=== PATIENT | male | born 1945 | race Caucasian/White ===

== ENCOUNTER 2023-02-09 23:10 | Inpatient (IN) ==
[2023-02-10] MEDS ORDERED: Dextrose 50% Syringe 50 ml 25 GM/50 ML SYRINGE IV PUSH PRN (00:54)
[2023-02-10] MEDS ORDERED: Vancomycin per Pharmacy 1 EA NOTE FOLLOW UP SCH (01:00)
[2023-02-10] MEDS: Cefepime 2 GM IV - ED ONCE IV ONE ×2 (01:04→01:45)
[2023-02-10 01:48] LABS: Hematocrit 42.5 % (38-53); Hemoglobin 14.2 g/dL (13.2-16.3); Mean Corpuscular Hemoglobin 30.4 pg (27-33); Mean Corpuscular Hgb Conc 33.4 g/dL (31-36); Mean Corpuscular Volume 91.1 fL (80-97); Mean Platelet Volume 9.1 fL (7.5-11.2); Platelet Count 176 10^3/uL (150-450); Red Blood Count 4.67 10^6/uL (4.06-5.63); Red Cell Distribution Width 14.9 % (12-17)
[2023-02-10 02:05] LABS: C Reactive Protein 341.69 mg/L (<8.01); Calcium 8.1 mg/dL (8.6-10.3); Creatinine, Serum 2.84 mg/dL (0.67-1.17); Potassium 4.2 mmol/L (3.5-5.0); eGFR CKD-EPI 22.4 (>60)
[2023-02-10 03:01] LABS: ABS Basophils 0.1 10^3/uL (0.0-0.1); ABS Eosinophils 0.2 10^3/uL (0.0-0.5); ABS Lymphocytes 1.4 10^3/uL (1.0-4.8); ABS Neutrophils 24.3 10^3/uL (1.5-7.6); ABS Nucleated RBC 0.01 10^3/ul; Eosinophil % 0.8 %
[2023-02-10] MEDS: Heparin 5000 UNITS/ML 1 mL VIAL SUBCUT SCH ×3 (05:33→21:05)
[2023-02-10] MEDS: Nystatin TOP POWDER 15 GM BTL TOPICAL SCH ×4 (05:34→22:37)
[2023-02-10] MEDS ORDERED: Vancomycin Random Level NOTE FOLLOW UP ONE (06:00)
[2023-02-10] MEDS: NS 0.9% 1000 ml BAG 1,000 ML IV SCH ×2 (06:42→20:58)
[2023-02-10] MEDS: Mometasone/Formoter 200/5 MDI INH SCH (08:03)
[2023-02-10] MEDS: Vancomycin 1,250 MG in NS 0.9% 250 ml 250 ML IVPB ONE ×2 (09:23→11:39)
[2023-02-10] MEDS ORDERED: Cefepime 2 GM in Dextrose 2 GM/50 ML BAG IV SCH (13:00)
[2023-02-10] MEDS: Cefepime 1 GM in Dextrose 1 GM/50 ML BAG IV SCH (13:26)
[2023-02-11] MEDS: Cefepime 1 GM in Dextrose 1 GM/50 ML BAG IV SCH ×2 (01:49→14:15)
[2023-02-11] MEDS: Heparin 5000 UNITS/ML 1 mL VIAL SUBCUT SCH ×3 (05:32→22:25)
[2023-02-11] MEDS ORDERED: Vancomycin Random Level NOTE FOLLOW UP ONE (06:00)
[2023-02-11] MEDS: Mometasone/Formoter 200/5 MDI INH SCH (07:22)
[2023-02-11 07:57] LABS: Hemoglobin 13.9 g/dL (13.2-16.3); Mean Corpuscular Hemoglobin 30.3 pg (27-33); Mean Corpuscular Hgb Conc 33.2 g/dL (31-36); Mean Corpuscular Volume 91.1 fL (80-97); Mean Platelet Volume 8.7 fL (7.5-11.2); Platelet Count 198 10^3/uL (150-450); Red Blood Count 4.61 10^6/uL (4.06-5.63); Red Cell Distribution Width 15.2 % (12-17); White Blood Count 25.7 10^3/uL (3.6-10.2)
[2023-02-11 07:58] LABS: ABS Basophils 0.1 10^3/uL (0.0-0.1); ABS Eosinophils 0.2 10^3/uL (0.0-0.5); ABS Lymphocytes 1.4 10^3/uL (1.0-4.8); ABS Monocytes 1.4 10^3/uL (0.0-1.1); ABS Neutrophils 22.6 10^3/uL (1.5-7.6); ABS Nucleated RBC 0.02 10^3/ul; Eosinophil % 0.8 %; Lymphocyte % 5.5 %; Nucleated Red Blood Cells % 0.1 %/100WBC (0.0-0.8)
[2023-02-11 08:06] LABS: C Reactive Protein 293.45 mg/L (<8.01); Creatinine, Serum 2.7 mg/dL (0.67-1.17); Potassium 4.1 mmol/L (3.5-5.0); eGFR CKD-EPI 23.8 (>60)
[2023-02-11] MEDS ORDERED: Lactated Ringers 1000 ml BAG 1,000 ML IV ONE (08:07)
[2023-02-11 08:30] LABS: Vancomycin Random 11.2 mcg/mL
[2023-02-11] MEDS: Nystatin TOP POWDER 15 GM BTL TOPICAL SCH ×3 (08:54→22:25)
[2023-02-11] MEDS ORDERED: Influenza vaccine *QUAD* *2023-24* 0.5 ML SYRINGE IM ONE (09:00)
[2023-02-11] MEDS ORDERED: Vancomycin 1000 MG in NS 0.9% 250 ML IVPB ONE (13:00)
[2023-02-11] MEDS: NS 0.9% 1000 ml BAG 1,000 ML IV SCH (19:05)
[2023-02-12] MEDS: Cefepime 1 GM in Dextrose 1 GM/50 ML BAG IV SCH (01:47)
[2023-02-12] MEDS ORDERED: Acetaminophen IV 1 GM/100ML 1,000 MG/100 ML BAG IV ONE (04:13)
[2023-02-12] MEDS: NS 0.9% 1000 ml BAG 1,000 ML IV SCH (05:14)
[2023-02-12] MEDS: Heparin 5000 UNITS/ML 1 mL VIAL SUBCUT SCH ×3 (05:16→21:21)
[2023-02-12] MEDS ORDERED: Vancomycin Random Level NOTE FOLLOW UP ONE (06:00)
[2023-02-12 06:40] LABS: Hematocrit 40.1 % (38-53); Hemoglobin 13.4 g/dL (13.2-16.3); Mean Corpuscular Hemoglobin 30.4 pg (27-33); Mean Corpuscular Hgb Conc 33.4 g/dL (31-36); Mean Corpuscular Volume 91.1 fL (80-97); Mean Platelet Volume 8.6 fL (7.5-11.2); Platelet Count 194 10^3/uL (150-450); Red Cell Distribution Width 15.3 % (12-17); White Blood Count 18.7 10^3/uL (3.6-10.2)
[2023-02-12 07:05] LABS: ABS Basophils 0.1 10^3/uL (0.0-0.1); ABS Eosinophils 0.3 10^3/uL (0.0-0.5); ABS Lymphocytes 1.6 10^3/uL (1.0-4.8); ABS Monocytes 1.7 10^3/uL (0.0-1.1); ABS Neutrophils 15.1 10^3/uL (1.5-7.6); ABS Nucleated RBC 0.02 10^3/ul; Eosinophil % 1.4 %; Lymphocyte % 8.6 %; Nucleated Red Blood Cells % 0.1 %/100WBC (0.0-0.8)
[2023-02-12 07:16] LABS: Calcium 7.7 mg/dL (8.6-10.3); Creatinine, Serum 2.46 mg/dL (0.67-1.17); Potassium 4.2 mmol/L (3.5-5.0); eGFR CKD-EPI 26.6 (>60)
[2023-02-12] MEDS: Mometasone/Formoter 200/5 MDI INH SCH (08:19)
[2023-02-12] MEDS: Nystatin TOP POWDER 15 GM BTL TOPICAL SCH ×3 (08:59→23:04)
[2023-02-12] MEDS ORDERED: Vancomycin 750 MG in NS 0.9% 250 ML IVPB ONE (12:00)
[2023-02-12] MEDS ORDERED: cefTRIAXone ADVAN VIAL 1 GM in NS 0.9% 50 ML 50 ML IVPB SCH (14:00)
[2023-02-12] MEDS ORDERED: Insulin GLARGINE 100 un/ml 10 ml VIAL SUBCUT SCH (21:00)
[2023-02-13] MEDS: NS 0.9% 1000 ml BAG 1,000 ML IV SCH ×2 (01:40→12:14)
[2023-02-13] MEDS: Heparin 5000 UNITS/ML 1 mL VIAL SUBCUT SCH (05:56)
[2023-02-13] MEDS ORDERED: Vancomycin Random Level NOTE FOLLOW UP ONE (06:00)
[2023-02-13 06:28] LABS: Creatinine, Serum 2.26 mg/dL (0.67-1.17); Vancomycin Trough 14.5 mcg/mL; eGFR CKD-EPI 29.5 (>60)
[2023-02-13] MEDS: Mometasone/Formoter 200/5 MDI INH SCH (07:53)
[2023-02-13 08:30] LABS: Hematocrit 38.1 % (38-53); Hemoglobin 12.8 g/dL (13.2-16.3); Mean Corpuscular Hemoglobin 30.5 pg (27-33); Mean Corpuscular Hgb Conc 33.6 g/dL (31-36); Mean Corpuscular Volume 90.8 fL (80-97); Mean Platelet Volume 8.8 fL (7.5-11.2); Platelet Count 243 10^3/uL (150-450); Red Cell Distribution Width 14.9 % (12-17); White Blood Count 18.1 10^3/uL (3.6-10.2)
[2023-02-13 09:30] LABS: ABS Basophils 0.1 10^3/uL (0.0-0.1); ABS Eosinophils 0.3 10^3/uL (0.0-0.5); ABS Lymphocytes 1.5 10^3/uL (1.0-4.8); ABS Monocytes 1.4 10^3/uL (0.0-1.1); ABS Neutrophils 14.8 10^3/uL (1.5-7.6); Eosinophil % 1.8 %; Lymphocyte % 8.1 %
[2023-02-13] MEDS: Nystatin TOP POWDER 15 GM BTL TOPICAL SCH (09:47)
[2023-02-13 14:14] VITALS: BP 138/71
[2023-02-14] MEDS ORDERED: Vancomycin 750 MG in NS 0.9% 250 ML IVPB SCH (06:00)
[2023-02-15] MEDS ORDERED: Vancomycin Trough Check NOTE FOLLOW UP ONE (05:30)
== END 2023-02-13 16:22 | disposition home or self-care (01) | DRG 603 ==
LOC: ED 23:10 → EDHOLD 02-10 00:52 → MED 02-10 02:11
PROVIDERS: ADMIT Hospitalist; ATTEND Student in an Organized Health Care Education/Training Program

== ENCOUNTER 2023-02-26 00:09 | Inpatient (IN) ==
[2023-02-26] MEDS ORDERED: Al Hydrox/Mg Hydrox/Simet LIQ 30 ML UDC PO PRN (00:16)
[2023-02-26] MEDS ORDERED: Polyethylene Glycol 3350 17 GM PACKET PO PRN (00:16)
[2023-02-26] MEDS ORDERED: Ondansetron 4 mg VIAL 2 MG/ML 2 ml VIAL IV PRN (00:16)
[2023-02-26] MEDS ORDERED: Senna TAB 8.6 mg TAB PO PRN (00:16)
[2023-02-26] MEDS ORDERED: Dextrose 50% Syringe 50 ml 25 GM/50 ML SYRINGE IV PUSH PRN (00:44)
[2023-02-26 01:34] LABS: Calcium 7.6 mg/dL (8.6-10.3); Potassium 5.3 mmol/L (3.5-5.0)
[2023-02-26 02:12] LABS: Creatinine, Serum 2.28 mg/dL (0.67-1.17); eGFR CKD-EPI 29.2 (>60)
[2023-02-26] MEDS: Heparin 5000 UNITS/ML 1 mL VIAL SUBCUT SCH ×4 (02:22→21:29)
[2023-02-26 02:33] LABS: ABS Basophils 0.1 10^3/uL (0.0-0.1); ABS Eosinophils 0.5 10^3/uL (0.0-0.5); ABS Neutrophils 6.7 10^3/uL (1.5-7.6); ABS Nucleated RBC 0.01 10^3/ul; Eosinophil % 5.5 %; Hemoglobin 11.9 g/dL (13.2-16.3); Lymphocyte % 10.8 %; Mean Corpuscular Hemoglobin 30.5 pg (27-33); Mean Corpuscular Hgb Conc 33.1 g/dL (31-36); Mean Corpuscular Volume 92.3 fL (80-97); Mean Platelet Volume 7.6 fL (7.5-11.2); Nucleated Red Blood Cells % 0.1 %/100WBC (0.0-0.8); Platelet Count 424 10^3/uL (150-450); Red Blood Count 3.91 10^6/uL (4.06-5.63); Red Cell Distribution Width 15.2 % (12-17); White Blood Count 9.3 10^3/uL (3.6-10.2)
[2023-02-26 02:36] LABS: Activated Partial Thrombo Time 33.8 seconds (26.0-38.0); INR 1.24 (0.83-1.13)
[2023-02-26] MEDS: Mometasone/Formoter 200/5 MDI INH SCH (07:34)
[2023-02-26 09:37] LABS: C Reactive Protein 77.43 mg/L (<8.01)
[2023-02-26] MEDS: SODIUM ZIRCONIUM CYCLOSILICATE 10 GM PACKET PO SCH ×3 (10:09→21:28)
[2023-02-26] MEDS: cefTRIAXone 2 gm/50 mL D5W 2 GM/50 ML BAG IV SCH (10:12)
[2023-02-26] MEDS: Insulin GLARGINE 100 un/ml 10 ml VIAL SUBCUT SCH (15:58)
[2023-02-26 22:12] LABS: Rapid COVID-19 Molecular Undetected (Undetected)
[2023-02-26 22:18] LABS: Influenza A Molecular Negative (Negative); Influenza B Molecular Negative (Negative)
[2023-02-27] MEDS: Heparin 5000 UNITS/ML 1 mL VIAL SUBCUT SCH ×3 (05:59→20:34)
[2023-02-27 06:47] LABS: ABS Basophils 0.1 10^3/uL (0.0-0.1); ABS Eosinophils 0.6 10^3/uL (0.0-0.5); ABS Lymphocytes 0.8 10^3/uL (1.0-4.8); ABS Monocytes 1.1 10^3/uL (0.0-1.1); ABS Neutrophils 5.1 10^3/uL (1.5-7.6); Eosinophil % 7.3 %; Hematocrit 35.3 % (38-53); Hemoglobin 11.8 g/dL (13.2-16.3); Lymphocyte % 10.8 %; Mean Corpuscular Hemoglobin 30.7 pg (27-33); Mean Corpuscular Hgb Conc 33.4 g/dL (31-36); Mean Corpuscular Volume 91.8 fL (80-97); Mean Platelet Volume 7.8 fL (7.5-11.2); Platelet Count 393 10^3/uL (150-450); Red Blood Count 3.84 10^6/uL (4.06-5.63); White Blood Count 7.6 10^3/uL (3.6-10.2)
[2023-02-27 07:21] LABS: Calcium 7.5 mg/dL (8.6-10.3); Creatinine, Serum 2.1 mg/dL (0.67-1.17); Magnesium 2.2 mg/dL (1.9-2.7); Potassium 4.8 mmol/L (3.5-5.0); eGFR CKD-EPI 32.2 (>60)
[2023-02-27] MEDS: cefTRIAXone 2 gm/50 mL D5W 2 GM/50 ML BAG IV SCH (07:47)
[2023-02-27] MEDS ORDERED: Heparin 2 UNITS/ML IVPREMIX 3,000 UNIT/1,500 ML BAG IV ONE (07:50)
[2023-02-27] MEDS ORDERED: Lidocaine 1% VIAL 10 MG/ML 30 ML VIAL ONE (07:50)
[2023-02-27] MEDS ORDERED: Iodixanol 320 (CONTRAST) 100 ML SDV ONE (07:50)
[2023-02-27] MEDS ORDERED: Midazolam 5 mg/5 ml VIAL 1 mg/ml 5 ml VIAL (5 mg) ONE (08:06)
[2023-02-27] MEDS ORDERED: fentaNYL 100 mcg/2 ml 50 MCG/ML VIAL ONE (08:06)
[2023-02-27] MEDS: Mometasone/Formoter 200/5 MDI INH SCH (08:15)
[2023-02-27] MEDS ORDERED: Heparin 1,000 UNIT/ML 10 ml (10,000 UNITS) CATHLAB/DIALYSIS ONE (08:16)
[2023-02-27] MEDS: Insulin GLARGINE 100 un/ml 10 ml VIAL SUBCUT SCH (09:41)
[2023-02-27] MEDS: SODIUM ZIRCONIUM CYCLOSILICATE 10 GM PACKET PO SCH (11:28)
[2023-02-27] MEDS ORDERED: Polyethylene Glycol 3350 17 GM PACKET PO PRN (13:07)
[2023-02-28] MEDS: SODIUM ZIRCONIUM CYCLOSILICATE 10 GM PACKET PO SCH ×2 (00:35→09:22)
[2023-02-28] MEDS: Heparin 5000 UNITS/ML 1 mL VIAL SUBCUT SCH ×3 (06:16→21:24)
[2023-02-28] MEDS: Mometasone/Formoter 200/5 MDI INH SCH ×2 (06:58→07:07)
[2023-02-28 07:15] LABS: ABS Basophils 0.1 10^3/uL (0.0-0.1); ABS Eosinophils 0.8 10^3/uL (0.0-0.5); ABS Monocytes 1.2 10^3/uL (0.0-1.1); ABS Neutrophils 5.5 10^3/uL (1.5-7.6); ABS Nucleated RBC 0.01 10^3/ul; Eosinophil % 8.8 %; Hematocrit 33.1 % (38-53); Hemoglobin 11.2 g/dL (13.2-16.3); Lymphocyte % 11.8 %; Mean Corpuscular Hgb Conc 33.7 g/dL (31-36); Mean Platelet Volume 7.8 fL (7.5-11.2); Nucleated Red Blood Cells % 0.1 %/100WBC (0.0-0.8); Platelet Count 368 10^3/uL (150-450); Red Cell Distribution Width 15.2 % (12-17); White Blood Count 8.6 10^3/uL (3.6-10.2)
[2023-02-28 07:30] LABS: Calcium 7.2 mg/dL (8.6-10.3); Creatinine, Serum 2.32 mg/dL (0.67-1.17); Potassium 4.2 mmol/L (3.5-5.0); eGFR CKD-EPI 28.6 (>60)
[2023-02-28] MEDS: Insulin GLARGINE 100 un/ml 10 ml VIAL SUBCUT SCH (09:16)
[2023-02-28] MEDS: cefTRIAXone 1 gm/50 mL D5W 1 GM/50 ML BAG IV SCH (09:17)
[2023-03-01] MEDS: Heparin 5000 UNITS/ML 1 mL VIAL SUBCUT SCH ×3 (05:23→21:26)
[2023-03-01] MEDS: Mometasone/Formoter 200/5 MDI INH SCH (07:41)
[2023-03-01] MEDS: Insulin GLARGINE 100 un/ml 10 ml VIAL SUBCUT SCH (08:38)
[2023-03-01] MEDS: cefTRIAXone 1 gm/50 mL D5W 1 GM/50 ML BAG IV SCH (09:45)
[2023-03-02] MEDS: Heparin 5000 UNITS/ML 1 mL VIAL SUBCUT SCH ×3 (06:26→21:14)
[2023-03-02 09:00] LABS: ABS Basophils 0.1 10^3/uL (0.0-0.1); ABS Eosinophils 0.8 10^3/uL (0.0-0.5); ABS Lymphocytes 1.3 10^3/uL (1.0-4.8); ABS Monocytes 0.9 10^3/uL (0.0-1.1); ABS Neutrophils 5.6 10^3/uL (1.5-7.6); ABS Nucleated RBC 0.02 10^3/ul; Eosinophil % 8.7 %; Hematocrit 36.4 % (38-53); Hemoglobin 12.3 g/dL (13.2-16.3); Lymphocyte % 15.4 %; Mean Corpuscular Hemoglobin 30.9 pg (27-33); Mean Corpuscular Hgb Conc 33.8 g/dL (31-36); Mean Corpuscular Volume 91.3 fL (80-97); Mean Platelet Volume 7.7 fL (7.5-11.2); Nucleated Red Blood Cells % 0.2 %/100WBC (0.0-0.8); Platelet Count 364 10^3/uL (150-450); Red Blood Count 3.99 10^6/uL (4.06-5.63); Red Cell Distribution Width 15.5 % (12-17); White Blood Count 8.7 10^3/uL (3.6-10.2)
[2023-03-02] MEDS: Mometasone/Formoter 200/5 MDI INH SCH (09:24)
[2023-03-02 09:28] LABS: Calcium 7.7 mg/dL (8.6-10.3); Creatinine, Serum 2.09 mg/dL (0.67-1.17); Potassium 4.7 mmol/L (3.5-5.0); eGFR CKD-EPI 32.4 (>60)
[2023-03-02] MEDS: cefTRIAXone 1 gm/50 mL D5W 1 GM/50 ML BAG IV SCH (09:45)
[2023-03-02] MEDS: Insulin GLARGINE 100 un/ml 10 ml VIAL SUBCUT SCH (09:46)
[2023-03-03] MEDS: Heparin 5000 UNITS/ML 1 mL VIAL SUBCUT SCH (05:36)
[2023-03-03 05:59] LABS: ABS Basophils 0.1 10^3/uL (0.0-0.1); ABS Eosinophils 0.9 10^3/uL (0.0-0.5); ABS Lymphocytes 1.6 10^3/uL (1.0-4.8); ABS Monocytes 1.1 10^3/uL (0.0-1.1); ABS Neutrophils 7.4 10^3/uL (1.5-7.6); Eosinophil % 7.8 %; Hematocrit 34.3 % (38-53); Hemoglobin 11.4 g/dL (13.2-16.3); Lymphocyte % 14.3 %; Mean Corpuscular Hemoglobin 30.3 pg (27-33); Mean Corpuscular Hgb Conc 33.2 g/dL (31-36); Mean Corpuscular Volume 91.5 fL (80-97); Mean Platelet Volume 7.6 fL (7.5-11.2); Platelet Count 375 10^3/uL (150-450); Red Blood Count 3.75 10^6/uL (4.06-5.63); Red Cell Distribution Width 14.9 % (12-17); White Blood Count 11.1 10^3/uL (3.6-10.2)
[2023-03-03 06:19] LABS: Calcium 7.5 mg/dL (8.6-10.3); Creatinine, Serum 2.11 mg/dL (0.67-1.17); Potassium 4.9 mmol/L (3.5-5.0)
[2023-03-03] MEDS: Mometasone/Formoter 200/5 MDI INH SCH (07:27)
[2023-03-03] MEDS: cefTRIAXone 1 gm/50 mL D5W 1 GM/50 ML BAG IV SCH (08:23)
[2023-03-03] MEDS: Insulin GLARGINE 100 un/ml 10 ml VIAL SUBCUT SCH (08:24)
[2023-03-03 12:52] LABS: C Reactive Protein 59.73 mg/L (<8.01)
[2023-03-03] MEDS ORDERED: ceFAZolin 2 GM PREMIX 2 GM/50 ML BAG ONE (13:34)
[2023-03-03] MEDS ORDERED: fentaNYL 100 mcg/2 ml 50 MCG/ML VIAL ONE (13:40)
[2023-03-03] MEDS ORDERED: Midazolam 2 mg/2 ml VIAL 1 mg/ml 2 ml VIAL (2 mg) ONE ×2 (13:40→14:37)
[2023-03-03] MEDS ORDERED: Propofol 10 MG/ML 20 ML BTL ONE (13:41)
[2023-03-03] MEDS ORDERED: Lidocaine 2% PF 5 ML VIAL ONE (13:44)
[2023-03-03] MEDS ORDERED: Glycopyrrolate IV 0.2 MG/ML 1 ML VIAL ONE (14:16)
[2023-03-03] MEDS ORDERED: ceFAZolin VIAL VIAL ONE (14:25)
[2023-03-03] MEDS: Lactated Ringers 1000 ml BAG 1,000 ML IV SCH (16:59)
[2023-03-04] MEDS: Lactated Ringers 1000 ml BAG 1,000 ML IV SCH ×2 (03:34→14:21)
[2023-03-04] MEDS: Mometasone/Formoter 200/5 MDI INH SCH (08:04)
[2023-03-04] MEDS: Insulin GLARGINE 100 un/ml 10 ml VIAL SUBCUT SCH (08:11)
[2023-03-04] MEDS: cefTRIAXone 1 gm/50 mL D5W 1 GM/50 ML BAG IV SCH (08:14)
[2023-03-04 08:28] LABS: Hematocrit 36.2 % (38-53); Hemoglobin 12.2 g/dL (13.2-16.3); Mean Corpuscular Hemoglobin 30.8 pg (27-33); Mean Corpuscular Hgb Conc 33.6 g/dL (31-36); Mean Corpuscular Volume 91.7 fL (80-97); Mean Platelet Volume 7.5 fL (7.5-11.2); Platelet Count 351 10^3/uL (150-450); Red Blood Count 3.95 10^6/uL (4.06-5.63); Red Cell Distribution Width 15.1 % (12-17)
[2023-03-04 08:48] LABS: Calcium 7.9 mg/dL (8.6-10.3); Creatinine, Serum 2.06 mg/dL (0.67-1.17); Potassium 4.9 mmol/L (3.5-5.0)
[2023-03-04] MEDS ORDERED: SODIUM ZIRCONIUM CYCLOSILICATE 10 GM PACKET PO ONE (09:34)
[2023-03-04] MEDS: Heparin 5000 UNITS/ML 1 mL VIAL SUBCUT SCH ×2 (14:16→22:13)
[2023-03-04] MEDS: Ammonium Lactate 12% 1 APPLIC TUBE TOPICAL SCH ×2 (14:16→22:13)
[2023-03-05] MEDS: Lactated Ringers 1000 ml BAG 1,000 ML IV SCH ×2 (00:52→11:18)
[2023-03-05] MEDS: Heparin 5000 UNITS/ML 1 mL VIAL SUBCUT SCH ×3 (05:24→22:13)
[2023-03-05 06:28] LABS: Hematocrit 34.4 % (38-53); Hemoglobin 11.6 g/dL (13.2-16.3); Mean Corpuscular Hemoglobin 30.6 pg (27-33); Mean Corpuscular Hgb Conc 33.7 g/dL (31-36); Mean Corpuscular Volume 90.9 fL (80-97); Mean Platelet Volume 7.5 fL (7.5-11.2); Platelet Count 343 10^3/uL (150-450); Red Blood Count 3.79 10^6/uL (4.06-5.63); Red Cell Distribution Width 14.9 % (12-17); White Blood Count 10.5 10^3/uL (3.6-10.2)
[2023-03-05 06:47] LABS: Calcium 7.7 mg/dL (8.6-10.3); Creatinine, Serum 2.02 mg/dL (0.67-1.17); eGFR CKD-EPI 33.8 (>60)
[2023-03-05] MEDS: Mometasone/Formoter 200/5 MDI INH SCH (08:14)
[2023-03-05] MEDS: Insulin GLARGINE 100 un/ml 10 ml VIAL SUBCUT SCH (09:46)
[2023-03-05] MEDS: Ammonium Lactate 12% 1 APPLIC TUBE TOPICAL SCH ×2 (09:54→22:13)
[2023-03-06] MEDS: Lactated Ringers 1000 ml BAG 1,000 ML IV SCH (00:44)
[2023-03-06] MEDS: Heparin 5000 UNITS/ML 1 mL VIAL SUBCUT SCH ×3 (06:14→22:25)
[2023-03-06 06:19] LABS: Calcium 7.6 mg/dL (8.6-10.3); Creatinine, Serum 1.9 mg/dL (0.67-1.17); Potassium 5.2 mmol/L (3.5-5.0); eGFR CKD-EPI 36.3 (>60)
[2023-03-06] MEDS: Mometasone/Formoter 200/5 MDI INH SCH (08:03)
[2023-03-06] MEDS: Insulin GLARGINE 100 un/ml 10 ml VIAL SUBCUT SCH (08:43)
[2023-03-06] MEDS: Ammonium Lactate 12% 1 APPLIC TUBE TOPICAL SCH ×2 (08:44→22:26)
[2023-03-06] MEDS ORDERED: Linezolid 600 MG IVPREMIX(*) 600 MG/300 ML BAG IVPB SCH (15:00)
[2023-03-07] MEDS: Heparin 5000 UNITS/ML 1 mL VIAL SUBCUT SCH (06:24)
[2023-03-07] MEDS: Mometasone/Formoter 200/5 MDI INH SCH (06:58)
[2023-03-07 09:15] LABS: Calcium 7.8 mg/dL (8.6-10.3); Creatinine, Serum 1.88 mg/dL (0.67-1.17); Potassium 5.1 mmol/L (3.5-5.0); eGFR CKD-EPI 36.8 (>60)
[2023-03-07 10:01] VITALS: BP 140/65
[2023-03-07] MEDS: Insulin GLARGINE 100 un/ml 10 ml VIAL SUBCUT SCH (10:26)
[2023-03-07] MEDS: Ammonium Lactate 12% 1 APPLIC TUBE TOPICAL SCH (12:12)
[2023-03-07 12:39] LABS: Rapid COVID-19 Molecular Undetected (Undetected)
== END 2023-03-07 14:05 | DRG 256 ==
LOC: MEDTELE 00:09 → SUATTDRO 00:16 → MEDTELE 02-27 13:49
PROVIDERS: ADMIT Internal Medicine; ATTEND Student in an Organized Health Care Education/Training Program

== ENCOUNTER 2023-04-02 10:54 | Inpatient (IN) ==
[2023-04-02] MEDS ORDERED: Polyethylene Glycol 3350 17 GM PACKET PO PRN (12:34)
[2023-04-02] MEDS ORDERED: Senna TAB 8.6 mg TAB PO PRN (12:34)
[2023-04-02] MEDS ORDERED: Zosyn per Pharmacy NOTE FOLLOW UP SCH (13:00)
[2023-04-02] MEDS: ZOSYN 3.375 GM x ONE DOSE over 30 miuntes IV ×2 (13:06→23:03)
[2023-04-02] MEDS ORDERED: Dextrose 50% Syringe 50 ml 25 GM/50 ML SYRINGE IV PUSH PRN (13:43)
[2023-04-02 14:20] LABS: ABS Basophils 0.1 10^3/uL (0.0-0.1); ABS Eosinophils 1.2 10^3/uL (0.0-0.5); ABS Neutrophils 8.3 10^3/uL (1.5-7.6); Eosinophil % 9.6 %; Hematocrit 32.9 % (38-53); Hemoglobin 10.8 g/dL (13.2-16.3); Lymphocyte % 15.7 %; Mean Corpuscular Hemoglobin 30.1 pg (27-33); Mean Corpuscular Hgb Conc 32.8 g/dL (31-36); Mean Corpuscular Volume 91.6 fL (80-97); Mean Platelet Volume 7.4 fL (7.5-11.2); Platelet Count 416 10^3/uL (150-450); Red Blood Count 3.59 10^6/uL (4.06-5.63); Red Cell Distribution Width 15.3 % (12-17); White Blood Count 12.6 10^3/uL (3.6-10.2)
[2023-04-02 14:28] LABS: Activated Partial Thrombo Time 34.6 seconds (26.0-38.0); INR 1.18 (0.83-1.13)
[2023-04-02 15:04] LABS: Albumin 2.8 g/dL (3.2-5.2); Albumin/Globulin Ratio 0.8 (1-3); C Reactive Protein 29.16 mg/L (<8.01); Calcium 8.3 mg/dL (8.6-10.3); Creatinine, Serum 1.88 mg/dL (0.67-1.17); Globulin 3.6 g/dL (2-4); Magnesium 2.1 mg/dL (1.9-2.7); Potassium 5.3 mmol/L (3.5-5.0); Total Bilirubin 0.6 mg/dL (0.2-1.0); Total Protein 6.4 g/dL (6.4-8.9); eGFR CKD-EPI 36.8 (>60)
[2023-04-02 15:41] LABS: Rapid COVID-19 Molecular Undetected (Undetected)
[2023-04-02] MEDS ORDERED: Buffered Lidocaine 1% SYRIN 1 ml ONE (15:59)
[2023-04-02] MEDS ORDERED: Lidocaine 2% PF 5 ML VIAL ONE (16:07)
[2023-04-02] MEDS ORDERED: Midazolam 2 mg/2 ml VIAL 1 mg/ml 2 ml VIAL (2 mg) ONE ×2 (16:08→17:19)
[2023-04-02] MEDS ORDERED: fentaNYL 100 mcg/2 ml 50 MCG/ML VIAL ONE (16:08)
[2023-04-02] MEDS ORDERED: Propofol 10 MG/ML 20 ML BTL ONE (16:11)
[2023-04-02] MEDS ORDERED: Piperacillin/Tazobac 3.375 BAG 3.375 GM/100 ML BAG IV ONE (16:40)
[2023-04-02] MEDS ORDERED: Glycopyrrolate IV 0.2 MG/ML 1 ML VIAL ONE ×3 (16:50→17:46)
[2023-04-02] MEDS ORDERED: Bupivacaine 0.5% 50 ML MDV VIAL ONE (17:34)
[2023-04-02] MEDS ORDERED: KETAMINE HCL 10 MG/ML 20 ml VIAL (200 MG) ONE (17:42)
[2023-04-02 17:53] LABS: Erythrocyte Sed Rate 68 mm/Hr (0-19)
[2023-04-02] MEDS ORDERED: Ondansetron 4 mg VIAL 2 MG/ML 2 ml VIAL ONE (18:21)
[2023-04-02] MEDS: NS 0.9% 1000 ml BAG 1,000 ML IV SCH (21:36)
[2023-04-02] MEDS: Nystatin TOP POWDER 15 GM BTL TOPICAL SCH (23:03)
[2023-04-02] MEDS: ZOSYN 3.375 GM Q8H per EXTENDED INFUSION IV SCH (23:20)
[2023-04-03] MEDS: ZOSYN 3.375 GM Q8H per EXTENDED INFUSION IV SCH (03:30)
[2023-04-03 05:23] LABS: ABS Basophils 0.1 10^3/uL (0.0-0.1); ABS Eosinophils 1.3 10^3/uL (0.0-0.5); ABS Lymphocytes 1.9 10^3/uL (1.0-4.8); ABS Neutrophils 7.2 10^3/uL (1.5-7.6); ABS Nucleated RBC 0.01 10^3/ul; Eosinophil % 11.1 %; Hematocrit 28.6 % (38-53); Hemoglobin 9.4 g/dL (13.2-16.3); Lymphocyte % 16.4 %; Mean Corpuscular Hemoglobin 30.3 pg (27-33); Mean Corpuscular Hgb Conc 32.9 g/dL (31-36); Mean Corpuscular Volume 92.2 fL (80-97); Mean Platelet Volume 7.3 fL (7.5-11.2); Platelet Count 376 10^3/uL (150-450); Red Cell Distribution Width 15.5 % (12-17); White Blood Count 11.5 10^3/uL (3.6-10.2)
[2023-04-03 06:00] LABS: Albumin 2.4 g/dL (3.2-5.2); Albumin/Globulin Ratio 0.8 (1-3); C Reactive Protein 31.56 mg/L (<8.01); Calcium 7.7 mg/dL (8.6-10.3); Creatinine, Serum 1.95 mg/dL (0.67-1.17); Globulin 3.2 g/dL (2-4); Potassium 5.4 mmol/L (3.5-5.0); Total Bilirubin 0.7 mg/dL (0.2-1.0); Total Protein 5.6 g/dL (6.4-8.9); eGFR CKD-EPI 35.2 (>60)
[2023-04-03] MEDS: Mometasone/Formoter 200/5 MDI INH SCH (09:57)
[2023-04-03] MEDS: Ammonium Lactate 12% 1 APPLIC TUBE TOPICAL SCH (10:30)
[2023-04-03] MEDS: Enoxaparin 40 MG/0.4 ML SYR SUBCUT SCH (11:04)
[2023-04-03] MEDS: Insulin GLARGINE 100 un/ml 10 ml VIAL SUBCUT SCH (11:04)
[2023-04-03] MEDS: CMCS: DAPAGLIFLOZIN 10 MG TAB (NF) PO SCH (11:05)
[2023-04-03] MEDS ORDERED: Al Hydrox/Mg Hydrox/Simet LIQ 30 ML UDC PO PRN (12:34)
[2023-04-03] MEDS: SODIUM ZIRCONIUM CYCLOSILICATE 10 GM PACKET PO SCH (12:49)
[2023-04-04 06:20] LABS: ABS Basophils 0.1 10^3/uL (0.0-0.1); ABS Eosinophils 1.2 10^3/uL (0.0-0.5); ABS Monocytes 1.1 10^3/uL (0.0-1.1); ABS Neutrophils 6.4 10^3/uL (1.5-7.6); ABS Nucleated RBC 0.02 10^3/ul; Eosinophil % 11.5 %; Hematocrit 28.1 % (38-53); Hemoglobin 9.4 g/dL (13.2-16.3); Lymphocyte % 18.7 %; Mean Corpuscular Hemoglobin 30.7 pg (27-33); Mean Corpuscular Hgb Conc 33.4 g/dL (31-36); Mean Platelet Volume 7.2 fL (7.5-11.2); Nucleated Red Blood Cells % 0.1 %/100WBC (0.0-0.8); Platelet Count 364 10^3/uL (150-450); Red Blood Count 3.05 10^6/uL (4.06-5.63); Red Cell Distribution Width 15.2 % (12-17); White Blood Count 10.8 10^3/uL (3.6-10.2)
[2023-04-04 06:34] LABS: Calcium 7.8 mg/dL (8.6-10.3); Creatinine, Serum 2.08 mg/dL (0.67-1.17); Potassium 5.1 mmol/L (3.5-5.0); eGFR CKD-EPI 32.6 (>60)
[2023-04-04] MEDS: SODIUM ZIRCONIUM CYCLOSILICATE 10 GM PACKET PO SCH (10:04)
[2023-04-05 07:01] LABS: ABS Basophils 0.1 10^3/uL (0.0-0.1); ABS Eosinophils 1.6 10^3/uL (0.0-0.5); ABS Lymphocytes 1.9 10^3/uL (1.0-4.8); ABS Monocytes 0.9 10^3/uL (0.0-1.1); ABS Neutrophils 5.3 10^3/uL (1.5-7.6); Eosinophil % 16.6 %; Hematocrit 27.9 % (38-53); Hemoglobin 9.4 g/dL (13.2-16.3); Lymphocyte % 19.7 %; Mean Corpuscular Hemoglobin 30.7 pg (27-33); Mean Corpuscular Hgb Conc 33.6 g/dL (31-36); Mean Corpuscular Volume 91.4 fL (80-97); Mean Platelet Volume 7.2 fL (7.5-11.2); Platelet Count 337 10^3/uL (150-450); Red Blood Count 3.06 10^6/uL (4.06-5.63); Red Cell Distribution Width 15.4 % (12-17); White Blood Count 9.8 10^3/uL (3.6-10.2)
[2023-04-05 07:09] LABS: Calcium 7.9 mg/dL (8.6-10.3); Creatinine, Serum 1.93 mg/dL (0.67-1.17); Potassium 4.7 mmol/L (3.5-5.0); eGFR CKD-EPI 35.7 (>60)
[2023-04-05] MEDS: Insulin GLARGINE 100 un/ml 10 ml VIAL SUBCUT SCH (08:51)
[2023-04-05] MEDS: SODIUM ZIRCONIUM CYCLOSILICATE 10 GM PACKET PO SCH (12:17)
[2023-04-06 06:24] LABS: Calcium 7.7 mg/dL (8.6-10.3); Creatinine, Serum 1.94 mg/dL (0.67-1.17); Potassium 4.8 mmol/L (3.5-5.0); eGFR CKD-EPI 35.4 (>60)
[2023-04-07 07:46] LABS: ABS Basophils 0.1 10^3/uL (0.0-0.1); ABS Eosinophils 1.4 10^3/uL (0.0-0.5); ABS Lymphocytes 2.1 10^3/uL (1.0-4.8); ABS Monocytes 0.9 10^3/uL (0.0-1.1); ABS Neutrophils 4.2 10^3/uL (1.5-7.6); Eosinophil % 16.2 %; Hematocrit 29.5 % (38-53); Hemoglobin 9.9 g/dL (13.2-16.3); Lymphocyte % 24.2 %; Mean Corpuscular Hemoglobin 30.8 pg (27-33); Mean Corpuscular Hgb Conc 33.7 g/dL (31-36); Mean Corpuscular Volume 91.3 fL (80-97); Mean Platelet Volume 6.5 fL (7.5-11.2); Platelet Count 327 10^3/uL (150-450); Red Blood Count 3.23 10^6/uL (4.06-5.63); Red Cell Distribution Width 15.8 % (12-17); White Blood Count 8.6 10^3/uL (3.6-10.2)
[2023-04-07 08:08] LABS: Calcium 7.9 mg/dL (8.6-10.3); Creatinine, Serum 1.92 mg/dL (0.67-1.17); Potassium 4.7 mmol/L (3.5-5.0); eGFR CKD-EPI 35.9 (>60)
[2023-04-08 06:14] LABS: ABS Basophils 0.1 10^3/uL (0.0-0.1); ABS Eosinophils 1.6 10^3/uL (0.0-0.5); ABS Lymphocytes 2.1 10^3/uL (1.0-4.8); ABS Monocytes 0.7 10^3/uL (0.0-1.1); ABS Neutrophils 3.7 10^3/uL (1.5-7.6); ABS Nucleated RBC 0.01 10^3/ul; Eosinophil % 20.1 %; Hematocrit 28.8 % (38-53); Hemoglobin 9.7 g/dL (13.2-16.3); Lymphocyte % 25.2 %; Mean Corpuscular Hemoglobin 30.7 pg (27-33); Mean Corpuscular Hgb Conc 33.7 g/dL (31-36); Mean Corpuscular Volume 91.2 fL (80-97); Nucleated Red Blood Cells % 0.1 %/100WBC (0.0-0.8); Platelet Count 323 10^3/uL (150-450); Red Blood Count 3.16 10^6/uL (4.06-5.63); Red Cell Distribution Width 15.9 % (12-17); White Blood Count 8.1 10^3/uL (3.6-10.2)
[2023-04-08 06:33] LABS: Calcium 7.8 mg/dL (8.6-10.3); Creatinine, Serum 1.79 mg/dL (0.67-1.17); Potassium 4.6 mmol/L (3.5-5.0)
[2023-04-10 05:58] LABS: ABS Basophils 0.1 10^3/uL (0.0-0.1); ABS Eosinophils 1.4 10^3/uL (0.0-0.5); ABS Monocytes 0.7 10^3/uL (0.0-1.1); ABS Nucleated RBC 0.01 10^3/ul; Eosinophil % 16.7 %; Hematocrit 28.9 % (38-53); Hemoglobin 9.7 g/dL (13.2-16.3); Lymphocyte % 24.6 %; Mean Corpuscular Hemoglobin 30.8 pg (27-33); Mean Corpuscular Hgb Conc 33.7 g/dL (31-36); Mean Corpuscular Volume 91.4 fL (80-97); Mean Platelet Volume 6.8 fL (7.5-11.2); Nucleated Red Blood Cells % 0.1 %/100WBC (0.0-0.8); Platelet Count 232 10^3/uL (150-450); Red Blood Count 3.16 10^6/uL (4.06-5.63); Red Cell Distribution Width 15.8 % (12-17); White Blood Count 8.1 10^3/uL (3.6-10.2)
[2023-04-10 06:12] LABS: Calcium 7.9 mg/dL (8.6-10.3); Creatinine, Serum 1.73 mg/dL (0.67-1.17); Potassium 4.3 mmol/L (3.5-5.0); eGFR CKD-EPI 40.7 (>60)
[2023-04-10] MEDS: Nystatin TOP POWDER 15 GM BTL TOPICAL SCH (20:19)
[2023-04-11 09:33] VITALS: BP 143/61
== END 2023-04-11 15:40 | DRG 617 ==
LOC: SSU 10:54 → INTOOBSV 10:54 → SUATTDRO 04-04 12:41
PROVIDERS: ADMIT Internal Medicine; ATTEND Student in an Organized Health Care Education/Training Program